=== PATIENT | female | born 2000 | race African-American/Black ===

== ENCOUNTER 2021-02-25 00:30 | Emergency (ER) | payer BC | END 2021-02-25 01:00 | disposition home or self-care (01) | LOC: MADERS 00:30 | DX: S01.01XA Laceration without foreign body of scalp, initial encounter (principal); F17.200 Nicotine dependence, unspecified, uncomplicated; Z79.899 Other long term (current) drug therapy; W22.8XXA Striking against or struck by other objects, initial encounter | CPT/HCPCS: 99283 ==